=== PATIENT | female | born 1965 | race Caucasian/White ===

== ENCOUNTER 2023-08-26 12:10 | Emergency (ER) | payer OTHER, SELFPAY ==
[2023-08-26 12:11] VITALS: BP 142/91; PULSE 96; RESP 18; TEMP 36.8; O2SAT 100; BMI 26.7
--- NOTE | 2023-08-26 15:17 | EX.ED.DYSGE1 ---
HPI History of Present Illness Chief Complaint: Depression Informant: patient Narrative Narrative: 57-year-old female presenting to the emergency department with depression. Patient notes that she has suffered from depression and anxiety for most of her life. At 1 point she was living in a residential which is very beneficial for her as she got a lot of counseling. She struggles with interpersonal relationships with her children. Her is a long-regional tanker truck driver. Through text messages she states that she has learned that he would like to file for divorce. This is caused her significant depression over the past few days when she has had thoughts of harming herself though she does not have a specific plan and she does not believe she would actually follow through with it. She is wondering if she can be admitted to a psychiatric facility to receive 24-hour counseling. [facility] Medical History Anxiety Depression GERD (gastroesophageal reflux disease) High cholesterol Allergy/AdvReac Type Severity Reaction Status Date / Time ciprofloxacin [From Cipro] AdvReac Other Verified 08/26/23 12:15 ibuprofen AdvReac Abd Verified 08/26/23 12:15 cramps/diarrhea Social History Smoking Status: Current every day smoker tobacco type: cigarettes ROS ROS ED Constitutional Constitutional ED: Denies chills, fever(s) or weight loss Eyes Eyes: Denies change in vision or diplopia ENT ENT ED: Denies ear pain, rhinorrhea or sore throat Cardiovascular Cardiovascular: Reports chest pain; Denies orthopnea, palpitations or racing heartbeat Respiratory/Chest Respiratory/Chest: Denies cough, dyspnea or orthopnea Gastrointestinal Gastrointestinal: Denies abdominal pain, diarrhea, nausea or vomiting Genitourinary Genitourinary ED: Denies dysuria, hematuria or urinary frequency Musculoskeletal Musculoskeletal: Denies arthralgias or myalgias Integumentary Denies abscess or rash Neurologic Neurologic: Denies headache(s) or weakness Psychiatric Psychiatric: Reports anxiety, depression and suicidal thoughts; Denies suicidal ideation Endocrine Endocrinology: Denies polydipsia, polyphagia or polyuria Allergic/Immunologic Allergic/Immunologic ED: Denies mouth swelling, tongue swelling or urticaria EXAM Physical Exam Const Vital Signs: 08/26/23 12:11 Temperature 98.3 F Temperature Source Temporal Pulse Rate 96 Respiratory Rate 18 Blood Pressure 142/91 H Blood Pressure Mean 108 Pulse Ox 100 Oxygen Delivery Method Room Air Positive well nourished and well developed General Appearance ED: well developed HEENT Reports normocephalic, head/scalp atraumatic and moist mucous membranes Eyes PERRL and EOMs intact bilaterally Neck no lymphadenopathy, supple and no JVD Resp normal respiratory effort and clear to auscultation bilaterally Cardio regular rate, regular rhythm and no murmurs GI normal to inspection, nondistended, normoactive bowel sounds and non-tender Palpation: soft Back/Spine no CVA tenderness and normal ROM Extremity normal to inspection General Extremety ED: Negative for edema General Extremity: Negative for edema Neuro oriented x3 and CN's II-XII intact bilaterally Sensorium / Orientation: alert Motor Exam: strength 5/5 throughout Psych mental status grossly normal Psych Narrative: Patient does have forward thinking. She states and notes that she has had thoughts of harming herself but they are not currently active and they are very disorganized. She has a lot of anxiety in her comments and worries about the future. Mood & Affect: depressed and anxious; Negative for tearful Skin no rashes or lesions noted and no wounds MDM MDM MDM Narrative Medical decision making narrative: Patient was assessed by social work. They are both in agreement that the patient would benefit from an outpatient partial hospitalization program. Patient is very much in agreement with this and is looking forward to working with this. I think this is a better alternative for her at this time than psychiatric hospitalization/stabilization. This will allow her greater opportunity to talk and work with a therapist individually and in a group. This will allow her to be at home and have better access with her family. Discharge Plan Triage Chief Complaint: Depression Other Complaint: Mental Health ED Provider: Andrew Saavedra Dx/Rx/DC Orders Clinical Impression: Depression Instructions: CONTRACT, No Harm, ED Depression Primary Care Provider: Sheng Ureña Referrals: Sheng Ureña PA [Primary Care Provider] - Activity Restrictions/Additional Instructions: As discussed, we have set you up with outpatient care for evaluation tomorrow. Disposition Disposition: Home, Self Care
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
== END 2023-08-26 15:27 | disposition home or self-care (01) ==
PROVIDERS: Emergency Provider Emergency Medicine; PCP Physician Assistant; Visit Provider Emergency Medicine
DX: F32.A Depression, unspecified (principal); F41.9 Anxiety disorder, unspecified; E78.00 Pure hypercholesterolemia, unspecified; F17.210 Nicotine dependence, cigarettes, uncomplicated; R07.9 Chest pain, unspecified
CPT/HCPCS: 99283